=== PATIENT | female | born 1970 | race African-American/Black ===

== ENCOUNTER 2018-07-03 19:27 | Inpatient (IN) ==
[2018-07-03] MEDS ORDERED: NS 1,000 ML IV ONE ×3 (20:26→22:39)
[2018-07-03 21:16] LABS: BASO# 0.19 X1000 (0.0-0.2); BASO% 2.1 % (0.0-0.8); HEMATOCRIT 42.1 % (37.0-47.0); HEMOGLOBIN 14.5 g/dL (12.0-16.0); IMM GRAN# 0.02 X1000 (0.0-0.04); IMM GRAN% 0.2 % (0.0-0.5); LYMPH# 2.84 X1000 (1.2-3.4); LYMPH% 30.8 % (20.5-51.1); MCH 26.7 PG (27-31); MCHC 34.4 g/dL (33-37); MCV 77.4 FL (81-99); MONO% 14.1 % (1.7-9.3); MPV 10.8 FL (7.4-10.4); NEUT# 4.86 X1000 (1.4-6.5); NEUT% 52.8 % (42.2-75.2); PLT 263 X1000 (130-400); RBC 5.44 XMIL (4.2-5.4); RDW 15.4 % (11.5-14.5); WBC 9.21 X1000 (4.8-10.8)
[2018-07-03 21:17] LABS: COLOR YELLOW; URINE SOURCE CLEAN CATCH
[2018-07-03 21:18] LABS: CLARITY SLIGHTLY CLOUDY (CLEAR)
[2018-07-03 21:19] LABS: BILIRUBIN URINE 1+ (NEGATIVE); BLOOD URINE 1+ (NEGATIVE); GLUCOSE URINE NEGATIVE (NEGATIVE); KETONE URINE TRACE mg/dL (NEGATIVE); URINE BACTERIA 3+ /HFP; URINE EPITHELIAL CELLS >10 /HPF (<10)
[2018-07-03 21:20] LABS: LEUKOCYTES URINE 1+ (NEGATIVE); NITRITE URINE NEGATIVE (NEGATIVE); PROTEIN URINE 2+(100 mg/dL) mg/dL (NEGATIVE); UROBILINOGEN URINE NORMAL
--- NOTE | 2018-07-03 21:27 | Diag Imaging Result Doc PS360 ---
EXAM: CHEST-PORTABLE HISTORY: hypotension TECHNIQUE: Chest single view COMPARISON: None. FINDINGS: Poor inspiratory effort. The heart is not enlarged. The vessels are not distended. There are no infiltrates. No effusion identified. IMPRESSION: Negative exam. Electronically signed by Serg Ferreira 07/03/2018 9:25 PM
[2018-07-03 21:31] LABS: ALBUMIN 4.1 g/dL (3.5-5.0); CALCIUM 8.9 mg/dL (8.8-10.2); CREATININE 2.8 mg/dL (0.5-0.9); POTASSIUM 3.2 mmol/L (3.5-5.1); TOTAL BILIRUBIN 0.5 mg/dL (0.20-1.00); TOTAL PROTEIN 7.4 g/dL (6.3-8.3)
--- NOTE | 2018-07-03 22:43 | PROVIDER DOCUMENTATION ---
This chart was entered by Deandra Bosch Scribe, acting as scribe for Baldomero Dickerson MD. HPI-General Adult - General Chief Complaint: Flu Symptoms Stated Complaint: FLU LIKE SX Time Seen by Provider: 07/03/18 20:26 Source: patient Allergies/Adverse Reactions: Patient Allergies Allergy/AdvReac Type Severity Reaction Status Date / Time No Known Allergies Allergy Verified 07/03/18 19:37 Home Medications: Home Medication List Medication Instructions Recorded Confirmed Last Taken Type Amlodipine [Norvasc] 10 mg PO DAILY #30 tablet 09/28/16 Unknown Rx Lisinopril/Hydrochlorothiazide 1 each PO DAILY #30 tablet 09/28/16 Unknown Rx [Lisinopril-Hctz 20-12.5 mg Tab] Metoprolol Succinate 50 mg PO DAILY #30 tab.er.24h 09/28/16 Unknown Rx - History of Present Illness -Gen Adult Nature of Presenting Problems: pt is a 48 yr old female, pt reports she was seen by her PCP 2 days ago and dx as Flu, pt given tamiflu without relief, tonight pt is presenting with complaint of weakness, fatigue, dizziness and cough Location of Pain/Injury: reports: generalized Pain Radiation: reports: no radiation Quality of Pain: reports: aching Severity: reports: mild Onset/Duration: reports: 3 days ago Timing: reports: still present, changing over time, getting worse Context/Activities at Onset: reports: light activity Modifying Factors: improves with: other medication (tamiflu- no relief-symptoms worsening) Associated Symptoms: reports: cough, dizziness, fatigue, fever/chills, sinus congestion/drainage, weakness Similar Symptoms Previously?: Yes Recently seen or treated by another doctor?: Yes Review of Systems - Adult - REVIEW OF SYSTEMS - ADULT Constitutional: reports: chills, fever Eyes: reports: no symptoms reported Ears, Nose, Mouth & Throat: reports: sinus problem. denies: throat pain Cardiovascular: denies: chest pain, palpitations, syncope Respiratory: reports: cough. denies: dyspnea on exertion, shortness of breath, wheezing Gastrointestinal: denies: abdominal pain, nausea, vomiting Genitourinary: reports: no symptoms reported Musculoskeletal: reports: muscle aches. denies: back pain, neck pain Integumentary: reports: no symptoms reported Neurological: reports: dizziness/vertigo, headache/migraines. denies: syncope Psychiatric: reports: no symptoms reported Endocrine: reports: no symptoms reported Hematologic/Lymphatic: reports: no symptoms reported Allergic/Immunologic: reports: no symptoms reported All Other Systems: Reviewed and Negative Past History - Adult - PAST MEDICAL HISTORY-ADULT Review of Records: reports: Old Records Reviewed, Nursing Assessment Review, Medications Reviewed, Social history reviewed & non-contributory. Major Childhood Illnesses: reports: denies history Cardiovascular: reports: HTN Respiratory: reports: denies history Gastrointestinal: reports: denies history Obstetrical/Gynecological: reports: denies history Genitourinary: reports: denies history Musculoskeletal: reports: denies history Neurological: reports: denies history Endocrine/Immune: reports: denies history Other Conditions: reports: denies history - PRIOR SURGERIES/PROCEDURES Surgical/Procedure History: reports: - IMMUNIZATION STATUS Childhood Immunizations: See Nurse Assessment Flu Vaccine: See Nurse Assessment - FAMILY HISTORY Family History: reviewed, not pertinent - SOCIAL HISTORY Smoking: denies Substance Use: denies Living Situation: family Physical Exam-General - PHYSICAL EXAM-ADULT Initial Vital Signs Reviewed: Yes - CONSTITUTIONAL General Appearance: alert, no apparent distress, obese - EYES Eyes: PERRL/EOMI - HEAD, EARS, NOSE, MOUTH & THROAT HENMT: normocephalic/atraumatic, moist mucous membranes, normal ENT inspection - NECK Neck: non-tender, full range of motion, supple, normal inspection - RESPIRATORY Respiratory: chest non-tender, no pleuratic chest pain, no respiratory distress , no accessory muscle use, rales (diffuse) - CARDIOVASCULAR Cardiovascular: normal peripheral pulses, tachycardia, other (hypotensive) - GASTROINTESTINAL (ABDOMEN) Abdominal Exam: non tender, soft - LYMPHATIC Lymphatic: no adenopathy - MUSCULOSKELETAL Back Exam: normal inspection, no CVA tenderness, no vertebral tenderness Extremity: normal range of motion, non-tender, normal gait, normal inspection - SKIN Integumentary: normal color, normal turgor, warm/dry - NEUROLOGIC Neurologic: grossly normal, no motor/sensory deficits - PSYCHIATRIC Psych/Mental Status: normal mood/affect Progress - PLAN OF CARE/RESULTS Progress/Plan/Lab Results: Vital Signs - 8 hr 07/03/18 19:33 07/03/18 20:04 07/03/18 20:11 Temperature 99.4 F 99.9 F H Pulse Rate 111 H 108 H 108 H Respiratory Rate 20 20 20 Blood Pressure 102/70 103/72 103/72 O2 Sat by Pulse Oximetry 94 L 98 94 L Laboratory Results - last 24 hr 07/03/18 20:10 POC Glucose 132 H Orders Category Date Time Status Saline Loc NOW Care 07/03/18 20:26 Inactive Saline Loc NOW Care 07/03/18 20:27 Active CHEST-PORTABLE [RAD] Stat Exams 07/03/18 20:35 Ordered BLOOD CULTURE [BLDCUL] Stat Lab 07/03/18 20:26 Uncollected CBC WITH ELECTRONIC DIFF [HEME] Stat Lab 07/03/18 20:26 Uncollected COMPREHENSIVE METABOLIC PANEL [CHEM] Stat Lab 07/03/18 20:26 Uncollected LACTATE, PLASMA [CHEM] Stat Lab 07/03/18 20:26 Uncollected UA [URINALYSIS W/POSS RFLX CULT] [URINALYSIS] Stat Lab 07/03/18 20:26 Uncollected 0.9% Sodium Chloride Inj [Ns] 1,000 ml Med 07/03/18 20:26 Active IV 999 mls/hr 0.9% Sodium Chloride Inj [Ns] 1,000 ml Med 07/03/18 20:26 Active IV 999 mls/hr A/P: Pt has KJ most likely due to dehydration, and hypotension will start IV NS @ 100 cc/hr Result Diagrams: 07/03/18 21:04 07/03/18 21:04 - XRAY 1 XRAY Study: Chest Impression: Normal ( EXAM: CHEST-PORTABLE HISTORY: hypotension TECHNIQUE: Chest single view COMPARISON: None. FINDINGS: Poor inspiratory effort. The heart is not enlarged. The vessels are not distended. There are no infiltrates. No effusion identified. IMPRESSION: Negative exam. Electronically signed by Serg Ferreira 07/03/2018 9:25 PM 07/03/182124 Interpreting Physician: Serg Ferreira MD Dictated Date/Time: 07/03/182124 cc: Onur Mcduffie MD; None,PCP) Comparison with other Films: no prior study - CONSULTS/PCP/HOSPITALIST Notification #1 *Consult/PCP/Hospitalist*: Dr salas Time Discussed: 22:43 Consult Disposition: Admit Departure - Departure Date of Disposition Decision: 07/03/18 (n) Time of Disposition Decision: 22:42 DIAGNOSIS: KJ (acute kidney injury), Dehydration Disposition: ADMITTED INPATIENT 09 Certified Medical Emergency: Emergent Condition: Stable Additional Freetext Instructions: ED Follow Up Instructions: You have been treated by a care provider in the Emergency Department. These instructions are being provided to you so you can have an understanding of how to care for yourself upon discharge. Upon discharge from the Emergency Department, you are responsible for making arrangements for follow-up care by a physician of your choice. Take all prescribed medications as directed. Return to the Emergency Department immediately for any new or worsening symptoms. You may call the Physician Referral phone number at [phone] to obtain a list of Physicians who are taking new patients. Referrals and Follow-Ups: None,PCP [Primary Care Provider] - - Critical Care Note This patient required my direct & personal management of CC.: No Attestation - Physician/ ROBIN Attestation Patient care was provided by Advanced Practice Provider:: No The physician spent face to face time with patient:: Yes Advanced Practice Provider documentation review:: Supervising physician onsite and consulted in the evaluation and care of this patient. The physician did have a face to face encounter with the patient. This chart was documented by the indicated scribe, (Deandra Bosch Scribe) and accurately reflects the services I performed and decisions made by me, Baldomero Dickerson MD, as attested by the provider's signature.
[2018-07-03] MEDS ORDERED: SODIUM CHLORIDE 0.9% INJ ONE (22:50)
[2018-07-03] MEDS ORDERED: PROTONIX IV ONE (22:50)
[2018-07-04] MEDS ORDERED: TYLENOL PO ONE
[2018-07-04] MEDS ORDERED: ZOFRAN IV ONE (00:45)
[2018-07-04] MEDS ORDERED: ROBITUSSIN-AC PO ONE (01:47)
[2018-07-04] MEDS ORDERED: PATANOL 0.1% BOTH EYES PRN (09:17)
[2018-07-04] MEDS ORDERED: KLOR-CON PO ONE (09:19)
[2018-07-04] MEDS ORDERED: VITAMIN D PO SCH (09:30)
[2018-07-04] MEDS: ZANTAC PO SCH ×2 (09:49→21:15)
[2018-07-04] MEDS: PRAVACHOL PO SCH (09:49)
[2018-07-04] MEDS: NS 1,000 ML IV SCH ×2 (09:49→17:19)
[2018-07-04] MEDS: NORVASC PO SCH (09:50)
[2018-07-04 09:55] LABS: BASO# 0.29 X1000 (0.0-0.2); BASO% 4.3 % (0.0-0.8); HEMATOCRIT 38.2 % (37.0-47.0); HEMOGLOBIN 13.4 g/dL (12.0-16.0); IMM GRAN# 0.01 X1000 (0.0-0.04); IMM GRAN% 0.1 % (0.0-0.5); LYMPH# 2.96 X1000 (1.2-3.4); LYMPH% 43.4 % (20.5-51.1); MCH 27.1 PG (27-31); MCHC 35.1 g/dL (33-37); MCV 77.2 FL (81-99); MONO% 10.3 % (1.7-9.3); MPV 10.4 FL (7.4-10.4); NEUT# 2.86 X1000 (1.4-6.5); NEUT% 41.9 % (42.2-75.2); PLT 237 X1000 (130-400); RBC 4.95 XMIL (4.2-5.4); RDW 15.5 % (11.5-14.5); WBC 6.82 X1000 (4.8-10.8)
[2018-07-04 10:14] LABS: ALBUMIN 3.6 g/dL (3.5-5.0); CALCIUM 8.3 mg/dL (8.8-10.2); CREATININE 1.5 mg/dL (0.5-0.9); TOTAL BILIRUBIN 0.5 mg/dL (0.20-1.00); TOTAL PROTEIN 6.6 g/dL (6.3-8.3)
--- NOTE | 2018-07-04 10:44 | HISTORY AND PHYSICAL ---
PRIMARY CARE PHYSICIAN: Dr. Marshall. CHIEF COMPLAINT: Weakness, fatigue, dizziness and cough was diagnosed with the flu two days prior at family doctor. She took 2 doses of Tamiflu but was unable to tolerate. HISTORY OF PRESENTING ILLNESS: This is a 48-year-old female who presents to [facility] ER with complaints of weakness, fatigue, dizziness and cough. She states she was diagnosed with the flu 2 days prior, but had not been eating or drinking well. She was only able to take 2 doses of Tamiflu and states she was unable to tolerate it. When she arrived to the emergency room, her laboratory data showed potassium of 3.2. Her BUN was 34 with a creatinine of 2.8. AST of 71 and ALT 65. Urinalysis showed negative nitrites, 1+ white blood cells, 3+ bacteria. Her chest x-ray was negative so she was admitted to the medical unit for further evaluation and treatment. PAST MEDICAL HISTORY: Hypertension, diabetes, hyperlipidemia, GERD and vitamin D deficiency. PAST SURGICAL HISTORY: . FAMILY HISTORY: Reviewed and noncontributory. SOCIAL HISTORY: She currently lives with family. Denies any tobacco, alcohol or illicit drug use. ALLERGIES: She has no known drug allergies. HOME MEDICATIONS: We will hold the following losartan/hydrochlorothiazide 100/ 25 one p.o. daily and metformin 500 mg p.o. daily. We will continue Norvasc 10 mg p.o. daily, vitamin D2 75736 units p.o. as directed, metoprolol 25 mg p.o. at bedtime, olopatadine 0.1% 1 drop to both eyes p.r.n., pravastatin 40 mg p.o. daily, and Zantac 150 mg p.o. b.i.d. LABORATORY DATA: White blood cell count of 9.21, hemoglobin 14.5, hematocrit 42.1, and platelets 263,000. Sodium 135, potassium 3.2, chloride 93, CO2 26, BUN of 34, creatinine 2.8, glucose 106, AST of 71, ALT 65, and plasma lactate of 1.5. Urinalysis with negative nitrites , 1+ white blood cells, and 3+ bacteria. Chest x-ray showed a negative exam. REVIEW OF SYSTEMS: She denies any fever at this time, but she did have a fever a couple of days prior when she was diagnosed with the flu. No longer has chills or body aches. She states she feels weak, fatigued, and dizziness at times. She has a nonproductive cough, some mild shortness of breath. Denied any abdominal pain, constipation, diarrhea, burning or hurting with urination. PHYSICAL EXAMINATION: On arrival, she had a temperature of 99.4 degrees, pulse 111, respirations 20, blood pressure 102/70 and saturating 94% on room air. GENERAL: This is a 48-year-old female who is lying in the bed and answers questions appropriately. HEENT: Normocephalic and atraumatic. Normal ENT inspection. Oropharynx and nares are clear. EYES: Pupils are equal, round, and reactive to light and accommodation. Extraocular movements are intact. NECK: Normal inspection. Normal range of motion. LUNGS: Clear to auscultation bilaterally with equal lung expansion and chest wall movement. HEART: Regular rate and rhythm. No murmurs, rubs, or gallops. ABDOMEN: Soft, nontender, and nondistended. Bowel sounds are present x4 quadrants. MUSCULOSKELETAL: She has 5/5 strength x4 extremities. NEUROLOGICAL: The cranial nerves 2-12 appear grossly intact. ASSESSMENT: 1. Acute kidney injury. 2. Hypokalemia. 3. Elevated liver function tests. 4. Urinary tract infection. 5. Recently diagnosed with the flu, but was unable to tolerate Tamiflu. We will not continue as we have missed the window of opportunity. PLAN: She was admitted to the medical unit at [place], and placed on a diabetic diet. We are going to check a CBC and BMP this morning. I will give her a 40 mEq p.o. potassium now. Normal saline at 125 mL an hour. Continue home medications as previously identified. Again, we will hold her diuretic, ARB and her metformin. We will give her some Rocephin 1 gram IV q.24. Urine culture and blood cultures are pending. Further orders after seen by attending. Dictated by SHAUN Nina for Fanta Jones MD cc: SHAUN Nina MD Dr. Reed MTDD
[2018-07-04 10:50] LABS: LYMPHS 40 % (21-51)
[2018-07-04 10:51] LABS: BASO 3 % (0-1); MONO 10 % (1-9); SEGS 47 % (42-75)
[2018-07-04] MEDS: ROCEPHIN 1 GM in NS 50 ML IV SCH (12:06)
--- NOTE | 2018-07-04 16:28 | HISTORY AND PHYSICAL ---
ADDENDUM: I saw the patient [id number] and I fully agree with the assessment and plan of nurse practitioner, Manuela Andrade. This is a 48-year-old female who is admitted to the hospital after having diagnosis of flu recently. She could not tolerate Tamiflu after taking only for 2 days. She was noted to have dehydration and elevated transaminases, after which she was admitted to the hospital for further care. She also has urinary tract infection for which we are going to give her ceftriaxone intravenously. She will continue to get IV fluid and will continue with routine home medications. Further recommendations will be as per hospital course. cc: Fanta Jones MD
[2018-07-04] MEDS: LOPRESSOR PO SCH (21:48)
[2018-07-05 05:49] LABS: BASO# 0.13 X1000 (0.0-0.2); BASO% 1.6 % (0.0-0.8); HEMATOCRIT 35.8 % (37.0-47.0); HEMOGLOBIN 12.1 g/dL (12.0-16.0); IMM GRAN# 0.02 X1000 (0.0-0.04); IMM GRAN% 0.2 % (0.0-0.5); LYMPH# 2.88 X1000 (1.2-3.4); MCH 26.5 PG (27-31); MCHC 33.8 g/dL (33-37); MCV 78.5 FL (81-99); MONO# 0.65 X1000 (0.11-0.59); MONO% 8.1 % (1.7-9.3); MPV 10.5 FL (7.4-10.4); NEUT# 4.33 X1000 (1.4-6.5); NEUT% 54.1 % (42.2-75.2); PLT 211 X1000 (130-400); RBC 4.56 XMIL (4.2-5.4); RDW 15.6 % (11.5-14.5); WBC 8.01 X1000 (4.8-10.8)
[2018-07-05 06:00] LABS: AGAP 10; ALBUMIN 3.4 g/dL (3.5-5.0); ALKALINE PHOSPHATASE 33 U/L (32-104); BUN 16 mg/dL (8-22); CALCIUM 8.2 mg/dL (8.8-10.2); CHLORIDE 106 mmol/L (98-107); COSMO 280; CREATININE 0.9 mg/dL (0.5-0.9); ESTIMATED GFR > 60; GLUCOSE 96 mg/dL (70-104); GOT 41 U/L (10-30); GPT 39 U/L (10-36); POTASSIUM 3.3 mmol/L (3.5-5.1); SODIUM 140 mmol/L (136-145); TCO2 24 mmol/L (25-35); TOTAL PROTEIN 6.1 g/dL (6.3-8.3)
[2018-07-05] MEDS: NS 1,000 ML IV SCH (06:46)
[2018-07-05 07:58] LABS: LYMPHS 42 % (21-51); MONO 5 % (1-9); SEGS 53 % (42-75)
[2018-07-05] MEDS ORDERED: PNEUMOVAX 23 IM ONE (09:00)
[2018-07-05] MEDS ORDERED: FLU VACCINE IM ONE (09:00)
[2018-07-05] MEDS: ROCEPHIN 1 GM in NS 50 ML IV SCH ×2 (09:15→12:15)
[2018-07-05] MEDS: PRAVACHOL PO SCH (09:16)
[2018-07-05] MEDS: NORVASC PO SCH (09:16)
[2018-07-05] MEDS: ZANTAC PO SCH ×2 (09:16→22:41)
[2018-07-05] MEDS ORDERED: KLOR-CON PO ONE (10:03)
[2018-07-05] MEDS ORDERED: NS 50 ML ONE (10:07)
[2018-07-05] MEDS ORDERED: NS 1,000 ML IV SCH (10:15)
--- NOTE | 2018-07-05 11:53 | PROGRESS NOTE ---
DATE: 07/05/2018 SUBJECTIVE: The patient denies having any acute complaints and feels better this morning. OBJECTIVE: Vital Signs: Temperature 99.1 degrees, pulse 77 per minute, respiratory rate 18 per minute, blood pressure 121/75, pulse oximetry 98% on room air. General: Patient is alert and oriented x3. She does not appear to be in any acute distress. Cardiovascular System: First and second heart sounds are audible without any murmurs or gallops. Respiratory System: No respiratory distress noted. Bilateral lung air entry is good without any rales or rhonchi. Gastrointestinal System: Abdomen is soft and nondistended. Normal bowel sounds are present. DIAGNOSTIC DATA: CBC is nondiagnostic and comprehensive metabolic panel showed a potassium of 3.3. Rest of the CMP is nondiagnostic. Her AST and ALT have almost normalized to 441 and 39 respectively. IMPRESSION: 1. Urinary tract infection. 2. Acute kidney injury that has now resolved. 3. Transaminasemia that has also improved. 4. Hypertension that has remained stable. PLAN: We will continue to provide her ceftriaxone intravenously and give her IV fluids. I am going to provide her potassium chloride 40 mEq today for hypokalemia. We will provide her supportive care and continue with current antihypertensive medicines. We will repeat CBC and CMP tomorrow morning. She can probably be discharged home tomorrow if continues to get better. cc: Fanta Jones MD
[2018-07-05] MEDS: LOPRESSOR PO SCH (22:41)
[2018-07-06 07:19] LABS: BASO# 0.05 X1000 (0.0-0.2); BASO% 0.7 % (0.0-0.8); EOS# 0.01 X1000 (0.0-0.7); EOS% 0.1 % (0.0-10.0); HEMATOCRIT 34.7 % (37.0-47.0); HEMOGLOBIN 11.8 g/dL (12.0-16.0); IMM GRAN# 0.03 X1000 (0.0-0.04); IMM GRAN% 0.4 % (0.0-0.5); LYMPH# 3.13 X1000 (1.2-3.4); LYMPH% 44.4 % (20.5-51.1); MCH 26.5 PG (27-31); MCV 77.8 FL (81-99); MONO% 7.1 % (1.7-9.3); MPV 10.8 FL (7.4-10.4); NEUT# 3.33 X1000 (1.4-6.5); NEUT% 47.3 % (42.2-75.2); PLT 224 X1000 (130-400); RBC 4.46 XMIL (4.2-5.4); RDW 15.3 % (11.5-14.5); WBC 7.05 X1000 (4.8-10.8)
[2018-07-06 07:46] LABS: AGAP 10; ALBUMIN 3.6 g/dL (3.5-5.0); ALKALINE PHOSPHATASE 35 U/L (32-104); BUN 8 mg/dL (8-22); CALCIUM 8.5 mg/dL (8.8-10.2); CHLORIDE 109 mmol/L (98-107); COSMO 285; CREATININE 0.7 mg/dL (0.5-0.9); ESTIMATED GFR > 60; GLUCOSE 104 mg/dL (70-104); GOT 32 U/L (10-30); GPT 32 U/L (10-36); POTASSIUM 3.5 mmol/L (3.5-5.1); SODIUM 144 mmol/L (136-145); TCO2 25 mmol/L (25-35); TOTAL PROTEIN 5.9 g/dL (6.3-8.3)
[2018-07-06 08:07] LABS: LYMPHS 26 % (21-51); MONO 12 % (1-9); SEGS 52 % (42-75)
[2018-07-06 08:08] LABS: ANISOCYTOSIS OCCASIONAL
[2018-07-06 08:09] LABS: HYPOCHROM OCCASIONAL; LARGE PLATELETS OCCASIONAL; MICROCYTOSIS OCCASIONAL; OVALOCYTES OCCASIONAL; POIKILOCYTOSIS 1+; TARGET CELLS OCCASIONAL
[2018-07-06] MEDS ORDERED: NS 1,000 ML IV SCH (08:30)
[2018-07-06] MEDS: NORVASC PO SCH (09:15)
[2018-07-06] MEDS: PRAVACHOL PO SCH (09:16)
[2018-07-06] MEDS: ZANTAC PO SCH (09:16)
[2018-07-06] MEDS: ROCEPHIN 1 GM in NS 50 ML IV SCH (12:14)
[2018-07-06 12:25] VITALS: BP 127/66
--- NOTE | 2018-07-06 13:16 | DISCHARGE SUMMARY ---
ADMISSION DATE: 07/04/2018 DISCHARGE DATE: 07/06/2018 DISCHARGE DIAGNOSES: 1. Urinary tract infection with sepsis associated with acute kidney injury and transaminasemia. 2. Hypertension. HOSPITAL COURSE: This is a 48-year-old, female who presented to the [facility] Emergency Department with complaint of weakness along with dizziness. She was diagnosed as having flu 2 days prior to that. She was found to have acute kidney injury with BUN and creatinine of 34 and 2.8 respectively. Also, she was found to have a urinary tract infection. AST along with ALT were elevated. She was given IV fluids and was initiated on ceftriaxone intravenously after which her condition gradually improved. Today, her BUN and creatinine were 8 and 0.7 respectively. Also, her potassium levels were low at 3.0 on 07/04/2018, and they have normalized to 3.5 today. Her ALT and AST are also within normal limits. Her overall condition has improved and she feels better. We will therefore discharge her home today. DISCHARGE MEDICATIONS: 1. Levofloxacin 500 mg orally once daily for 5 days. 2. Losartan/hydrochlorothiazide 100 mg/25 mg orally once daily. 3. Metformin 500 mg orally once daily. 4. Pravastatin 40 mg orally once daily at bedtime. 5. Metoprolol 25 mg orally once daily at bedtime. 6. Vitamin D2 50,000 units orally once a week as directed. 7. Amlodipine 10 mg orally once daily. 8. Potassium chloride 10 mEq orally once daily. FOLLOWUP: She will follow with her PCP in approximately 1 week. CONDITION: Stable. DISPOSITION: Home. cc: Fanta Jones MD
== END 2018-07-06 13:00 | disposition home or self-care (01) | DRG 872 ==
LOC: P.ED 19:27 → P.EDIPHOLD 07-04 03:54 → SUATTDRO 07-04 03:54 → P.MEDSURG 07-04 04:46
PROVIDERS: ATTEND Internal Medicine
CPT/HCPCS: 71010; 71045; 80053; 81001; 82948; 83605; 85025; 87040; 87088; 96361; 96374; 96375; 99285; A9270; C9113; J0696; J2405; J7030; S0164; XXXXX